=== PATIENT | female | born 1980 | race Caucasian/White ===

== ENCOUNTER 2021-01-14 23:40 | Emergency (ER) | payer OTHER ==
[~2021-01-14 23:40] MED LIST: ATARAX25 MG PO; CELEXA20 MG PO; MELATONIN5 M2 PO; NEURONTIN300 M1 PO; VISTARIL50 MG/ML IM
[2021-01-15] MEDS ORDERED: NAPROXEN500 MG PO (01:32)
[2021-01-15] MEDS ORDERED: AMOXICILLIN500 M2 PO (01:32)
[2021-01-15] MEDS ORDERED: NORCO 5-325 TA1 EACH PO (01:32)
== END 2021-01-15 01:55 | disposition home or self-care (01) ==
LOC: FER 23:40
DX: H72.01 Central perforation of tympanic membrane, right ear (principal); F17.200 Nicotine dependence, unspecified, uncomplicated
CPT/HCPCS: J1170; J2060; J2405

== ENCOUNTER 2021-01-28 12:16 | Emergency (ER) | payer OTHER ==
[~2021-01-28 12:16] MED LIST changes: +AMOXICILLIN500 M2 PO; +NAPROXEN500 MG PO; +NORCO 5-325 TA1 EACH PO
[2021-01-28 13:09] LABS: BASOPHIL 0.8 % (0-2); EOSINOPHIL 1.2 % (0-5); HCT 40.1 % (37.0-47.0); HGB 13.5 g/dl (12.5-16.0); LYMPHOCYTE 30.6 % (15-48); MCH 31.1 pg (25.0-31.0); MCHC 33.7 g/dL (32.0-36.0); MCV 92.4 fL (78.0-100.0); MONOCYTE 5.7 % (0-12); MPV 10.5 fL (6.0-9.5); NEUTROPHIL 61.5 % (41-80); NRBC 0; PLT 252 K/uL (150-400); RBC 4.34 M/uL (4.20-5.40); RDW 12.6 % (11.5-14.0); WBC 8.4 K/uL (4.0-10.5)
[2021-01-28 13:15] LABS: INR 1.09 (0.9-1.2); PROTHROMBIN TIME 13.4 SECONDS (11.4-13.6)
[2021-01-28 13:16] LABS: PTT 31.6 SECONDS (22.2-34.7)
[2021-01-28 13:29] LABS: LACTIC ACID 1.3 mmol/L (0.4-1.9)
[2021-01-28 13:35] LABS: ALBUMIN 3.7 g/dL (3.4-5.0); BUN/CREAT RATIO (CALC) 13.5 RATIO; CREATININE 0.74 mg/dL (0.51-0.95); GLOBULIN (CALCULATION) 3.2 g/dL; TOTAL PROTEIN 6.9 g/dL (6.4-8.2)
[2021-01-28 13:37] LABS: CKMB 0.8 ng/mL (0.0-3.6)
[2021-01-28 15:28] LABS: ACETAMINOPHEN (TYLENOL) 3.6 ug/mL (10.0-30.0)
[2021-01-28 15:32] LABS: BILIRUBIN NEGATIVE (NEGATIVE); BLOOD NEGATIVE Ery/uL (NEGATIVE); CLARITY CLEAR (CLEAR); COLOR YELLOW (YELLOW); GLUCOSE (U) NORMAL (NORMAL); LEUKOCYTES 1+ Leu/uL (NEGATIVE); NITRITE NEGATIVE (NEGATIVE); PROTEIN NEGATIVE (NEGATIVE); SPECIFIC GRAVITY 1.015 (1.001-1.030); UROBILINOGEN 0.2 mg/dL (0.2-1.0)
[2021-01-28 15:35] LABS: ECSTASY (MDMA) NEGATIVE (NEGATIVE); MARIJUANA (THC) POSITIVE (NEGATIVE); METHADONE NEGATIVE (NEGATIVE); OPIATES NEGATIVE (NEGATIVE)
[2021-01-28 15:36] LABS: AMPHETAMINES POSITIVE (NEGATIVE); BARBITURATES NEGATIVE (NEGATIVE); OXYCODONE NEGATIVE (NEGATIVE)
[2021-01-28 15:43] LABS: BACTERIA TRACE
[2021-01-28 15:44] LABS: YEAST PRESENT
[2021-01-28] MEDS ORDERED: COMPAZINE10 MG PO (16:09)
== END 2021-01-28 16:30 | disposition home or self-care (01) ==
LOC: FER 12:16
PROVIDERS: Emergency Medicine
DX: G43.109 Migraine with aura, not intractable, without status migrainosus (principal); R06.02 Shortness of breath; R50.9 Fever, unspecified; R53.1 Weakness
CPT/HCPCS: 36415; 70450; 70551; 71045; 80053; 80305; 81001; 82550; 82553; 83605; 84484; 85025; 85610; 85730; 93005; G0480; J2060

== ENCOUNTER 2021-01-30 17:26 | Emergency (ER) | payer OTHER ==
[~2021-01-30 17:26] MED LIST changes: +COMPAZINE10 MG PO
[2021-02-01 16:08] LABS: LYME IGG/IGM AB <0.91 ISR (0.00-0.90)
[2021-02-03 16:08] LABS: E. CHAFFEENSIS (HME) IGG TITER Negative (Neg:<1:64); E. CHAFFEENSIS (HME) IGM TITER Negative (Neg:<1:20); HGE IGG TITER Negative (Neg:<1:64); HGE IGM TITER Negative (Neg:<1:20)
[2021-02-13 15:11] LABS: FRANCISELLA TULARENSIS IGG Negative (Negative); FRANCISELLA TULARENSIS IGM Negative (Negative)
== END 2021-01-30 22:00 | disposition home or self-care (01) ==
LOC: FER 17:26
PROVIDERS: Emergency Medicine
DX: G24.09 Other drug induced dystonia (principal); T50.905A Adverse effect of unspecified drugs, medicaments and biological substances, initial encounter; F19.10 Other psychoactive substance abuse, uncomplicated; F17.200 Nicotine dependence, unspecified, uncomplicated
CPT/HCPCS: 86618; 86666; J2060; J2405